=== PATIENT | male | born 1960 | race Caucasian/White ===

== ENCOUNTER → 2018-06-02 10:56 | Outpatient (CLI) | payer OTHER, SELFPAY ==
[2018-06-02 11:06] LABS: Absolute Lymphocyte Count 1.75 X10^3/ul (0.83-4.51); Absolute Neutrophil Count 4.4 X10^3/uL (2.0-7.7); Basophil# 0.05 X10^3/uL; Basophil% 0.7 % (0-1); Eosinophil# 0.19 X10^3/uL; Eosinophils% 2.7 % (0-5); Hematocrit 53.4 % (40-54); Hemoglobin 17.8 g/dl (13.0-16.5); Lymphocyte # 1.75 X10^3/ul (4.0); Lymphocyte % 24.6 % (19-41); Mean Corp Hgb Conc 33.3 g/gl (32-36); Mean Corpuscular Hgb 29.5 pg (27.0-32.0); Mean Corpuscular Volume 88.4 fL (80-94); Monocyte# 0.74 X10^3/uL; Monocyte% 10.4 % (0-10); Neutrophil # 4.36 X10^3/uL (2.7-7.7); Neutrophil % 61.3 % (47-70); POSITIVE COUNT NO; POSITIVE DIFFERENTIAL NO; POSITIVE MORPHOLOGY NO; Platelet Count 257 K/mm3 (150-450); RBC Distribution Width CV 13.5 % (11.6-14.6); RBC Distribution Width SD 43.3 fl (35.1-43.9); Red Blood Count 6.04 M/mm3 (4.6-6.2); White Blood Count 7.1 K/mm3 (4.4-11.0)
[2018-06-02 11:23] LABS: D-Dimer Quantitative (DVT/PE) 0.55 FEU/ug/m (0.27-0.49)
[2018-06-02 11:34] LABS: AST(SGOT) 24 U/L (15-37); Alanine Aminotransfer ALT/SGPT 56 U/L (16-61); Albumin, Serum 3.7 g/dL (3.2-5.0); Alkaline Phosphatase 106 U/L (45-117); Anion Gap 7 (5-15); BUN 10 mg/dL (7-18); BUN/Creat Ratio 10.8 RATIO (10-20); CPK Total, Creatine Kinase 66 U/L (39-308); CRP < 2.90 mg/L (0.0-3.0); Calcium,Total 8.7 mg/dL (8.5-10.1); Chloride 107 mmol/L (98-107); Creatinine, Serum 0.93 mg/dL (0.70-1.30); EST Glomerular Filtration Rate 90 mL/min (>60); Est Glom Filt Rate - Afr Amer 109 mL/min (>60); Globulin 3.8 g/dL (2.2-4.2); Glucose 87 mg/dL (74-106); Potassium 4.5 mmol/L (3.5-5.1); Protein, Total 7.5 g/dL (6.4-8.2); Sodium Level 142 mmol/L (136-145); Thyroid Stim Hormone (TSH) 1.04 uIU/mL (0.358-3.74)
== END ==
PROVIDERS: PCP Internal Medicine; Visit Provider Nurse Practitioner Gerontology
DX: R07.89 Other chest pain (principal)
CPT/HCPCS: 80053; 82550; 84443; 84484; 85025; 85379; 86140

== ENCOUNTER → 2018-06-02 12:19 | Outpatient (CLI) | payer OTHER, SELFPAY ==
--- NOTE | 2018-06-02 12:51 | CT_ITS ---
STUDY: CTA CHEST REASON FOR EXAM: Male, 57 years old. Elevated d-dimer. RADIATION DOSAGE (If Supplied By Facility): CTDIvol = ( 14.63 ) mGy, DLP = ( 635.07 ) mGycm TECHNIQUE: The examination was performed with the intravenous administration of 100 ml of Isovue 370 contrast material. Post-processing of the angiographic images was performed, with multiplanar reformation and 3D reconstruction. Individualized dose optimization techniques were used for this CT. COMPARISON: None. FINDINGS: Normal enhancement of the main pulmonary artery and right and left pulmonary arteries. Normal enhancement of the bilateral peripheral pulmonary arteries. There is no demonstrated pulmonary embolism. Normal thoracic aorta and visualized great vessels. There is no demonstrated aortic dissection. Normal heart and pericardium. Normal mediastinum. Normal hilar regions. Normal visualized trachea and bronchi. Mild elevation of the right hemidiaphragm. Increased linear markings with areas of confluence of both lung bases suggestive of a atelectasis. Early infiltrates cannot be excluded. Normal pleura. Normal chest wall structures. There are degenerative changes of thoracic spine. Normal visualized upper abdomen. CT/CTA Chest W/WO Contrast IMPRESSION: Normal CTA chest examination, without a demonstrated pulmonary embolism or arterial dissection. Increased markings at the lung bases suggestive of bibasilar atelectasis and/or possible early infiltrates. Follow-up is recommended. Electronically Signed: Matthew Sagastume MD at 13:47 EST Tel [phone], Service support ,
== END ==
PROVIDERS: Family Provider Internal Medicine; PCP Internal Medicine; Referring Provider Nurse Practitioner Gerontology; Visit Provider Nurse Practitioner Gerontology
DX: R79.1 Abnormal coagulation profile (principal)
CPT/HCPCS: 71275; Q9967

== ENCOUNTER 2018-06-08 12:22 | Emergency (ER) | payer OTHER, SELFPAY ==
[2018-06-08 12:24] VITALS: BP 120/71; PULSE 62; RESP 14; TEMP 36.4; O2SAT 93; BMI 27.2
--- NOTE | 2018-06-08 12:46 | EKG12_ITS ---
Test Reason : SYNCOPE Blood Pressure : / mmHG Vent. Rate : 066 BPM Atrial Rate : 066 BPM P-R Int : 146 ms QRS Dur : 084 ms QT Int : 382 ms P-R-T Axes : 051 087 035 degrees QTc Int : 400 ms Normal sinus rhythm Normal ECG Confirmed by JEREMIAH NEFF, JOE ([id number]), editor producer SIM HARPER ([id number]) on 06/10/2018 12:02:33 PM Referred By: MARGOT Confirmed By:JOE DANIELS MD
--- NOTE | 2018-06-08 12:46 | RAD_ITS ---
STUDY: X-RAY CHEST REASON FOR EXAM: Male, 57 years old. Chest pain. Syncopal episode. TECHNIQUE: Single AP portable view of the chest. COMPARISON: None. FINDINGS: EKG electrodes are seen. There is elevation of the right hemidiaphragm. The lungs are clear. There is no demonstrated pleural abnormality. Normal size heart. Normal mediastinum and al. Normal visualized pulmonary arteries. Normal visualized aortic arch and descending thoracic aorta. Normal visualized thoracic spine. Normal visualized ribs, clavicles, and shoulders. There is no demonstrated abnormality of the visualized soft tissue structures of the upper abdomen. RAD/Chest 1 View (Portable) IMPRESSION: Normal x-ray examination of the chest. Electronically Signed: Matthew Sagastume MD at 13:58 EST Tel [phone], Service support ,
--- NOTE | 2018-06-08 12:47 | CT_ITS ---
STUDY: CT BRAIN WITHOUT CONTRAST REASON FOR EXAM: Male, 57 years old. Seizure following a syncopal episode. RADIATION DOSAGE (If Supplied By Facility): CTDIvol = ( 44.99 ) mGy, DLP = ( 796.11 ) mGycm TECHNIQUE: Transaxial CT imaging of the brain was performed without administration of intravenous contrast material. Individualized dose optimization techniques were used for this CT. COMPARISON: None. FINDINGS: Normal soft tissue structures. Normal calvarium. Normal size ventricles and extra-axial spaces for the patient's age. Normal white matter tracts of the cerebral hemispheres. Normal basal ganglia and thalami. Normal brainstem. Normal cerebellum. There is no intracranial hemorrhage. There are no findings of an acute ischemic infarction. Minimal degree of mucosal thickening along the anterior aspect of the left ethmoid sinus. CT/Brain/Head without Contrast IMPRESSION: Normal unenhanced CT scan of the brain. Electronically Signed: Matthew Sagastume MD at 14:06 EST Tel [phone], Service support ,
--- NOTE | 2018-06-08 12:58 | ED.VISSUMM ---
- ER Visit Summary Date of Service: 06/08/18 Chief Complaint: [] Syncope after blood draw doctor's office History of Present Illness: The patient is a 57 M [] was in doctor's office to have routine follow-up blood test he had his blood drawn when he really became syncopal, the staff reports that they are concerned he may have had a seizure he woke immediately the patient indicates he remembers the entire episode he had no tongue biting no incontinence he had no sense of being ill in any way, he states it is not uncommon it is not uncommon for him to pass out if his blood is drawn, he indicates he had a chest pain workup recently showed negative CTA, he was scheduled for outpatient stress test. He has been doing fine he has not been sick in any way no fever no cough no chest pain no numbness weakness or paresthesias, and again he has no history of SC PE DVT seizures or syncope, he insists he feels fine and he actually would just prefer just to go home without any type of workup but explained to him that his physicians would like him to have screening labs EKG and head CT and he agrees to the above Physical Examination: [] 120/71 General, no distress resting comfortably HEENT is generally unremarkable The neck is supple no adenopathy Cardiovascular, regular rate and rhythm Lungs, clear bilateral Abdomen, soft nontender Extremities, no clubbing cyanosis or edema Neurologic, awake alert answering questions appropriately moving all 4 extremities, cranial nerves neurologic exam negative NIH 0 Test Results: [] Emergency Department Course and Treatment: [] This he has no complaints his EKG shows a sinus with nothing acute we will obtain screening labs and head CT his physicians ordered and will reevaluate him he states he feels fine and he wants to go home does not wish to be considered for admission under any circumstances Laboratory studies and other studies are generally unremarkable see those report, nothing acute, his head CT is also negative for all as is the chest x-ray he is remained completely asymptomatic, he states he feels fine he wants to go home I explained the exact etiology of the spell he had in the office is unclear he now recalls he has not had anything to eat since yesterday and he is wondering whether the fasting for the blood test could have contributed but again he feels fine wants to go home he will follow with his doctors for all of the other outpatient studies that have plan for him and will return for change in symptoms Treatment Plan: [] Disposition: [] Home stable Impression: [] Syncopal episode with blood draw resolved This note was generated with [employer] dictation software. It may contain incorrect words, spelling, and punctuation that were not noted in review of the chart prior to signing ED Disposition - Plan for ED Patient: Chief Complaint: Syncope Referrals: Patrizia Vizcarra DO [Primary Care Provider] -
--- NOTE | 2018-06-08 13:01 | ED.DCSUM_ITS ---
- ER Visit Summary Date of Service: 06/08/18 Chief Complaint: [] Syncope after blood draw doctor's office History of Present Illness: The patient is a 57 M [] was in doctor's office to have routine follow-up blood test he had his blood drawn when he really became syncopal, the staff reports that they are concerned he may have had a seizure he woke immediately the patient indicates he remembers the entire episode he had no tongue biting no incontinence he had no sense of being ill in any way, he states it is not uncommon it is not uncommon for him to pass out if his blood is drawn, he indicates he had a chest pain workup recently showed negative CTA, he was scheduled for outpatient stress test. He has been doing fine he has not been sick in any way no fever no cough no chest pain no numbness weakness or paresthesias, and again he has no history of [place] PE DVT seizures or syncope, he insists he feels fine and he actually would just prefer just to go home without any type of workup but explained to him that his physicians would like him to have screening labs EKG and head CT and he agrees to the above Physical Examination: [] 120/71 General, no distress resting comfortably HEENT is generally unremarkable The neck is supple no adenopathy Cardiovascular, regular rate and rhythm Lungs, clear bilateral Abdomen, soft nontender Extremities, no clubbing cyanosis or edema Neurologic, awake alert answering questions appropriately moving all 4 extremities, cranial nerves neurologic exam negative NIH 0 Test Results: [] Emergency Department Course and Treatment: [] This he has no complaints his EKG shows a sinus with nothing acute we will obtain screening labs and head CT his physicians ordered and will reevaluate him he states he feels fine and he wants to go home does not wish to be considered for admission under any circumstances Laboratory studies and other studies are generally unremarkable see those report, nothing acute, his head CT is also negative for all as is the chest x- ray he is remained completely asymptomatic, he states he feels fine he wants to go home I explained the exact etiology of the spell he had in the office is unclear he now recalls he has not had anything to eat since yesterday and he is wondering whether the fasting for the blood test could have contributed but again he feels fine wants to go home he will follow with his doctors for all of the other outpatient studies that have plan for him and will return for change in symptoms Treatment Plan: [] Disposition: [] Home stable Impression: [] Syncopal episode with blood draw resolved This note was generated with [employer] dictation software. It may contain incorrect words, spelling, and punctuation that were not noted in review of the chart darrius or to signing ED Disposition - Plan for ED Patient: Chief Complaint: Syncope Referrals: Patrizia Vizcarra DO [Primary Care Provider] -
[2018-06-08] MEDS: Aspirin 81 MG TAB.CHEW 324 MG PO (13:06)
[2018-06-08 13:07] VITALS: BP 119/67; PULSE 72; RESP 19; O2SAT 91
[2018-06-08] MEDS: 0.9% Normal Saline 1,000 ML 150 ML IV (13:07)
[2018-06-08 13:16] LABS: Absolute Lymphocyte Count 1.68 X10^3/ul (0.83-4.51); Absolute Neutrophil Count 5.9 X10^3/uL (2.0-7.7); Basophil# 0.05 X10^3/uL; Basophil% 0.6 % (0-1); Eosinophil# 0.13 X10^3/uL; Eosinophils% 1.6 % (0-5); Hematocrit 51.3 % (40-54); Hemoglobin 17.1 g/dl (13.0-16.5); Lymphocyte # 1.68 X10^3/ul (4.0); Mean Corp Hgb Conc 33.3 g/gl (32-36); Mean Corpuscular Hgb 29.4 pg (27.0-32.0); Mean Corpuscular Volume 88.1 fL (80-94); Mean Platelet Vol. 11.1 fl (6.2-12.0); Monocyte% 7.2 % (0-10); Neutrophil # 5.91 X10^3/uL (2.7-7.7); Neutrophil % 70.5 % (47-70); Platelet Count 236 K/mm3 (150-450); RBC Distribution Width CV 13.3 % (11.6-14.6); RBC Distribution Width SD 42.4 fl (35.1-43.9); Red Blood Count 5.82 M/mm3 (4.6-6.2); White Blood Count 8.4 K/mm3 (4.4-11.0)
[2018-06-08 13:22] LABS: POSITIVE COUNT NO; POSITIVE DIFFERENTIAL NO; POSITIVE MORPHOLOGY NO
[2018-06-08 13:23] LABS: BUN 19 mg/dL (7-18); Creatinine, Serum 1.17 mg/dL (0.70-1.30); EST Glomerular Filtration Rate 69 mL/min (>60); Estimated Creatinine Clearance 69.02 ml/min; Glucose 128 mg/dL (74-106)
[2018-06-08 13:24] LABS: Anion Gap 4 (5-15); BUN/Creat Ratio 16.2 RATIO (10-20); Calcium,Total 8.7 mg/dL (8.5-10.1); Chloride 106 mmol/L (98-107); Est Glom Filt Rate - Afr Amer 83 mL/min (>60); Potassium 4.2 mmol/L (3.5-5.1); Sodium Level 138 mmol/L (136-145)
--- NOTE | 2018-06-08 14:54 | ED.DEP ---
ED Disposition - Plan for ED Patient: Chief Complaint: Syncope Instructions: ED Syncope Vasovagal Referrals: Patrizia Vizcarra DO [Primary Care Provider] -
--- NOTE | 2018-06-08 14:55 | ED.DEP ---
ED Disposition - Plan for ED Patient: Chief Complaint: Syncope Instructions: ED Syncope Vasovagal Referrals: Patrizia Vizcarra DO [Primary Care Provider] -
[2018-06-08 16:14] VITALS: BP 118/84; PULSE 62; RESP 14; O2SAT 97
== END 2018-06-08 16:15 | disposition home or self-care (01) ==
LOC: ED 13:10
PROVIDERS: Emergency Provider Emergency Medicine; Family Provider Internal Medicine; PCP Internal Medicine
DX: R55 Syncope and collapse (principal)
CPT/HCPCS: 36415; 70450; 71045; 80048; 84484; 85025; 93005; 96360; 96361; 99284

== ENCOUNTER → 2018-09-16 15:41 | Outpatient (CLI) | payer OTHER, SELFPAY ==
--- NOTE | 2018-09-16 10:00 | COLBX_PTH ---
PATIENT: PARRISH WOODRUFF LOC: [facility] U#:[id number] AGE/SX: 64/M ROOM: RE09/16/[address]: Dr. Amrit Valencia MD : 1960 BED: DIS: SPEC #: [id number] RECD: 09/16/18 15:33 STATUS: CINTHYA REJacob #: [id number] KRUNAL: 09/16/18 10:[address]: Amrit Valencia DEPT: SURGICAL PATHOLOGY RECD BY: Johnny Rao ENTERED: 09/19/18 13:49 SP TYPE: COLON BX OTHR DR: Dr. Patriiza Vizcarra, [facility] Tissues: Sigmoid colon biopsy Procedures: Surgery Specimen Level IV HEADER OPERATION: Colonoscopy with polypectomy PRE-OP DIAGNOSIS: Screening TISSUE SUBMITTED: Distal sigmoid polyp MICROSCOPIC DIAGNOSIS Distal sigmoid colon polyp, biopsy: Tubular adenoma. AM:aruna 09/20/18 MICROSCOPIC DESCRIPTION Slides are reviewed. GROSS DESCRIPTION Received in fixative is one container labeled with the patient's name and designated distal sigmoid polyp. The specimen consists of a piece of anderson-pink polyp measuring 0.7 x 0.5 x 0.4 cm. A few fragments of fecal material are also noted. The specimen is totally submitted in one cassette. / SJ:aruna 09/19/18 TC:5 CPT: 61176
== END ==
PROVIDERS: Family Provider Internal Medicine; PCP Internal Medicine; Referring Provider Internal Medicine Gastroenterology; Visit Provider Internal Medicine Gastroenterology
DX: Z12.11 Encounter for screening for malignant neoplasm of colon (principal)
CPT/HCPCS: 88305

== ENCOUNTER 2020-03-21 09:11 | Emergency (ER) | payer OTHER, SELFPAY ==
[2020-03-21 09:13] VITALS: BP 136/81; PULSE 78; RESP 16; TEMP 36.1; O2SAT 99; BMI 25.0
--- NOTE | 2020-03-21 09:23 | RAD_ITS ---
STUDY: X-RAY CHEST REASON FOR EXAM: Male, 59 years old. RT SIDE CHEST PAIN X 1 DAY TECHNIQUE: Single AP portable view of the chest. COMPARISON: Comparison is made with prior study dated 06/08/2018. FINDINGS: EKG electrodes are seen. There is elevation of the right hemidiaphragm. The lungs are clear. There is no demonstrated pleural abnormality. Normal size heart. Normal mediastinum and al. Normal visualized pulmonary arteries. Normal visualized aortic arch and descending thoracic aorta. Normal visualized thoracic spine. Normal visualized ribs, clavicles, and shoulders. There is no demonstrated abnormality of the visualized soft tissue structures of the upper abdomen. RAD/Chest 1 View (Portable) IMPRESSION: Normal x-ray examination of the chest. Electronically Signed: Matthew Sagastume, at 10:07 EDT , Service support ,
--- NOTE | 2020-03-21 09:23 | EKG12_ITS ---
Test Reason : CP Blood Pressure : / mmHG Vent. Rate : 070 BPM Atrial Rate : 070 BPM P-R Int : 142 ms QRS Dur : 080 ms QT Int : 364 ms P-R-T Axes : 047 070 055 degrees QTc Int : 393 ms Normal sinus rhythm Normal ECG Confirmed by HARRIETT NEFF, GENARO ([id number]), slot editor ISRA SCHERER ([id number]) on 03/27/2020 10:26:58 AM Referred By: SALVATORE Confirmed By:GENARO LORENZANA MD
--- NOTE | 2020-03-21 09:24 | ED.VISSUMM ---
- ER Visit Summary Date of Service: 03/21/20 Chief Complaint: [Chest pain] History of Present Illness: The patient is a 59 M [presents the emergency department chest discomfort that started around 3 AM while at work. Patient denies any trauma to his chest. Patient states that he gets an intermittent pain that lasts anywhere from 10 to 15 seconds and feels like a burning and somewhere in between heartburn and a pulled muscle. There is no radiation of the pain. The pain is not exertional. There is no nausea or vomiting. There is no shortness of breath. He is not had pain like this before. He denies recent travel or surgery. No family history of heart disease. Patient does not have history of PE or DVT. Patient states that he took 2 full dose aspirin this morning. Otherwise has no medical history.] Physical Examination: [HEENT-PERRLA, EOMI. Cranial nerves II through XII grossly intact. TMs clear. Mucous membranes moist. No adenopathy. Cardiovascular-regular rate and rhythm without murmur or ectopy Lungs-clear to auscultation, chest wall stable without crepitus or subcu emphysema Abdomen-normoactive bowel sounds, soft, nontender, no rebound or rigidity, no peritoneal signs. Extremities-intact ?4, normal range of motion, normal pulses, atraumatic] Test Results: [EKG obtained on arrival shows sinus rhythm with a ventricular rate of 70 bpm with no acute segment changes. CBC with differential is normal. Chemistries unremarkable. Troponin less than 0.015. D-dimer was 0.38. Chest x-ray was normal.] Emergency Department Course and Treatment: [IV line was tablets on arrival. Patient placed on cardiac sonographer.] Treatment Plan: [Patient I feel is low risk for cardiac etiology of his chest pain. He has a heart score of 1 due to his age. He has had no more discomfort here in the department. Patient is wondering if it could be stress related as he oftentimes now finds himself clenching his jaw and feeling tense.] Patient advised to follow-up with his primary care physician within next 3 to 5 days and he actually does have an appointment in 5 days. Disposition: [Discharged home in stable condition. Patient advised to return if increasing pain, increasing shortness of breath, exertional dyspnea, or condition should worsen anyway.] Impression: [Chest [id number] uncertain] This note was generated with [employer] dictation software. It may contain incorrect words, spelling, and punctuation that were not noted in review of the chart prior to signing ED Disposition - Plan for ED Patient: Referrals: Zackery,Patrizia, DO [Primary Care Provider] -
[2020-03-21 09:40] LABS: Absolute Lymphocyte Count 2.28 X10^3/uL (0.83-4.51); Absolute Neutrophil Count 4.6 X10^3/uL (2.0-7.7); Basophil# 0.08 X10^3/uL; Eosinophil# 0.18 X10^3/uL; Eosinophils% 2.3 % (0-5); Hematocrit 49.6 % (40-54); Hemoglobin 16.5 g/dL (13.0-16.5); Lymphocyte # 2.28 X10^3/ul (4.0); Lymphocyte % 29.3 % (19-41); Mean Corp Hgb Conc 33.3 g/dL (32-36); Mean Corpuscular Hgb 29.2 pg (27.0-32.0); Mean Corpuscular Volume 87.8 fL (80-94); Mean Platelet Vol. 10.2 fl (6.2-12.0); Monocyte% 7.7 % (0-10); NRBC Flagged by Analyzer 0 % (0-5); Neutrophil # 4.63 X10^3/uL (2.7-7.7); Neutrophil % 59.4 % (47-70); Platelet Count 285 K/mm3 (150-450); RBC Distribution Width CV 12.6 % (11.6-14.6); RBC Distribution Width SD 40.3 fl (35.1-43.9); Red Blood Count 5.65 M/mm3 (4.6-6.2); White Blood Count 7.8 K/mm3 (4.4-11.0)
[2020-03-21 09:57] LABS: D-Dimer Quantitative (DVT/PE) 0.38 FEU/ug/m (0.27-0.49)
[2020-03-21 09:58] LABS: Anion Gap 5 (5-15); BUN 14 mg/dL (7-18); BUN/Creat Ratio 12.6 RATIO (10-20); Chloride 108 mmol/L (98-107); Creatinine, Serum 1.11 mg/dL (0.70-1.30); EST Glomerular Filtration Rate 72 mL/min (>60); Est Glom Filt Rate - Afr Amer 88 mL/min (>60); Estimated Creatinine Clearance 71.04 ml/min; Glucose 79 mg/dL (74-106); Sodium Level 143 mmol/L (136-145)
--- NOTE | 2020-03-21 10:58 | ED.DEP ---
ED Disposition - Plan for ED Patient: Instructions: ED Chest Pain Atypical Unkn Cause Referrals: Patrizia Vizcarra DO [Primary Care Provider] - 3-5 Days
[2020-03-21 11:15] VITALS: BP 130/86; PULSE 77; RESP 16; O2SAT 98
== END 2020-03-21 11:19 | disposition home or self-care (01) ==
PROVIDERS: Emergency Provider Emergency Medicine; PCP Internal Medicine
DX: R07.89 Other chest pain (principal)
CPT/HCPCS: 71045; 80048; 84484; 85025; 85379; 93005; 99284; A4216

== ENCOUNTER 2020-07-16 09:49 | Emergency (ER) | payer OTHER, SELFPAY ==
[2020-07-16 09:50] VITALS: BP 153/99; PULSE 77; RESP 16; TEMP 36.1; O2SAT 96; BMI 26.3
--- NOTE | 2020-07-16 10:08 | EKG12_ITS ---
Test Reason : REPEAT CP Blood Pressure : / mmHG Vent. Rate : 062 BPM Atrial Rate : 062 BPM P-R Int : 152 ms QRS Dur : 074 ms QT Int : 400 ms P-R-T Axes : 042 037 041 degrees QTc Int : 406 ms Normal sinus rhythm Normal ECG Confirmed by ELLI NEFF, HALLIE ([id number]), editor greeting card BERTA DIAZ ([id number]) on 07/22/2020 9:19:49 AM Referred By: QUETA Confirmed By:DEIDRA CALLOWAY MD
--- NOTE | 2020-07-16 10:10 | ED.DCSUM_ITS ---
History of Present Illness Chief Complaint: Chest Pain Informant: Patient Narrative: 60-year-old male with recent diagnosis of factor V Leiden presenting with left- sided chest pain which is intermittent. He does not get dizzy, short of breath, diaphoretic, nauseous when he gets this pain. He states that last for about a minute usually. It does not feel like pressure. Patient has no cardiac history. Patient has not had fever, chills, cough, shortness of breath, dizziness, lightheadedness. He states he feels otherwise well. He called his PCP who told him to come to the ER for evaluation. Past Medical History - Allergies and Home Meds Allergies/Adverse Reactions: Allergies Penicillins Allergy (Verified 07/16/20 09:53) Hives Primary Care Physician: Patrizia Vizcarra DO [Primary Care Provider] - Smoking Status: Never smoker Review of Systems General: Denies: Chills, Fever, Sweats Eyes: Denies: Visual changes - bilaterally, Diplopia ENT: Denies: Rhinorrhea, Sore throat Cardiovascular: Reports: Chest pain. Denies: Palpitations, Heart racing Respiratory: Denies: Dyspnea, Cough, Dyspnea on exertion Gastrointestinal: Denies: Abdominal pain, Nausea, Vomiting, Diarrhea, Melena, Hematochezia Genitourinary: Denies: Dysuria, Hematuria, Frequency Musculoskeletal: Denies: Back pain, Extremity Pain Skin: Denies: Rash, Wounds Neurological: Denies: Headache, Weakness, Numbness Physical Exam Vital Signs/Narrative: Vital Signs Temp Pulse Resp BP Pulse Ox 07/16/20 09:50 97 F L 77 16 153/99 H 96 Inital Vital Signs reviewed: Yes General: Well nourished, Well developed Head: Normocephalic, Atraumatic Eyes: Perrl, EOMI ENT: Moist mucous membranes, No rhinorrhea Cardiovascular: Regular rate, Regular rhythm, No murmurs Respiratory: No distress, CTA bilaterally Extremities: Nontender, No edema Skin: Normal color, No rash Neurological: Alert, Oriented x3, Cranial nerves II-XII grossly intact Psychological: Normal affect, Normal Mood Diagnostic/Tx/Re-eval - Rhythm Strip Rhythm Strip: Sinus Rhythm Rate: 61 - EKG Initial EKG Interpretation: Sinus Rhythm, No Acute Injury Pattern, - - MN interval 150 ms QRS duration 76 ms QTc 394 ms Follow-up EKG Interpretation: Sinus Rhythm, No Acute Injury Pattern - Medical Decision Making Patient presents with intermittent chest pain. He does not have associated symptoms. His initial EKG is sinus rhythm at 61 bpm without ischemic changes interpreted by myself. His chest x-ray is interpreted by myself and radiologist as negative for acute process. Lab work is normal. Troponin is negative. Patient has concern for PE given that he was just diagnosed with factor V Leiden. Patient will have CTA of the chest and delta troponin/EKG. CTA of the chest is negative for acute process. Delta troponin is negative. Repeat EKG as interpreted by myself shows no changes from initial EKG and no signs of ischemia. Patient counseled on findings. Recommended he follows up with his PCP on an outpatient basis. She is given return precautions. Impression: 1. Chest pain ED Disposition - Plan for ED Patient: Disposition: Home or Assisted Living Instructions: ED Chest Pain, Uncertain Cause Referrals: Patrizia Vizcarra, [Primary Care Provider] -
[2020-07-16 10:19] LABS: Absolute Lymphocyte Count 2.28 X10^3/uL (0.83-4.51); Absolute Neutrophil Count 5.2 X10^3/uL (2.0-7.7); Basophil# 0.09 X10^3/uL; Basophil% 1.1 % (0-1); Eosinophil# 0.29 X10^3/uL; Eosinophils% 3.4 % (0-5); Hematocrit 53.9 % (40-54); Hemoglobin 17.6 g/dL (13.0-16.5); Lymphocyte # 2.28 X10^3/ul (4.0); Lymphocyte % 26.8 % (19-41); Mean Corp Hgb Conc 32.7 g/dL (32-36); Mean Corpuscular Hgb 28.9 pg (27.0-32.0); Mean Corpuscular Volume 88.4 fL (80-94); Mean Platelet Vol. 10.3 fl (6.2-12.0); NRBC Flagged by Analyzer 0 % (0-5); Neutrophil # 5.24 X10^3/uL (2.7-7.7); Neutrophil % 61.5 % (47-70); Platelet Count 290 K/mm3 (150-450); RBC Distribution Width SD 41.8 fl (35.1-43.9); White Blood Count 8.5 K/mm3 (4.4-11.0)
[2020-07-16 10:20] VITALS: O2SAT 96
[2020-07-16] MEDS: Aspirin 81 MG TAB.CHEW 324 MG PO (10:21)
[2020-07-16 10:27] LABS: D-Dimer Quantitative (DVT/PE) 0.43 FEU/ug/m (0.27-0.49)
[2020-07-16 10:32] LABS: Anion Gap 4 (5-15); BUN 16 mg/dL (7-18); BUN/Creat Ratio 13.9 RATIO (10-20); Calcium,Total 8.9 mg/dL (8.5-10.1); Chloride 107 mmol/L (98-107); Creatinine, Serum 1.15 mg/dL (0.70-1.30); EST Glomerular Filtration Rate 69 mL/min (>60); Est Glom Filt Rate - Afr Amer 84 mL/min (>60); Estimated Creatinine Clearance 67.74 ml/min; Glucose 99 mg/dL (74-106); Potassium 4.3 mmol/L (3.5-5.1); Sodium Level 138 mmol/L (136-145)
--- NOTE | 2020-07-16 10:40 | RAD_ITS ---
STUDY: X-RAY CHEST REASON FOR EXAM: Male, 60 years old. INTERMITTENT LEFT CHEST PAIN, N/V, LEFT ARM RADIATION. TECHNIQUE: Single AP portable view of the chest. COMPARISON: None. FINDINGS: The lungs are clear and expanded. There is no demonstrated pleural abnormality. Normal size heart. Normal mediastinum and al. Normal visualized pulmonary arteries. Normal visualized aortic arch and descending thoracic aorta. There is a 12 degree dextroscoliosis of the thoracic spine. There is degenerative osteoarthritis of the bilateral shoulders. There is no demonstrated abnormality of the visualized soft tissue structures of the upper abdomen. RAD/Chest 1 View (Portable) IMPRESSION: Degenerative changes, as described above. No demonstrated acute cardiopulmonary process. Electronically Signed: Rica Remy, at 11:19 EST Tel , Service support ,
--- NOTE | 2020-07-16 11:20 | CT_ITS ---
STUDY: CTA CHEST REASON FOR EXAM: Male, 60 years old. INTERMITTENT CHEST PAIN SINCE 12.25 RADIATES TO LT ARM RADIATION DOSAGE (If Supplied By Facility): CTDIvol = ( 11.53 ) mGy, DLP = ( 362.84 ) mGycm TECHNIQUE: The examination was performed with the intravenous administration of IV 100mL Isovue-370. Post-processing of the angiographic images was performed, with multiplanar reformation and 3D reconstruction. Individualized dose optimization techniques were used for this CT. COMPARISON: None. FINDINGS: Normal enhancement of the main pulmonary artery and right and left pulmonary arteries. Normal enhancement of the bilateral peripheral pulmonary arteries. There is no demonstrated pulmonary embolism. Normal thoracic aorta and visualized great vessels. There is no demonstrated aortic dissection. Normal heart and pericardium. Normal mediastinum. Normal hilar regions. Normal visualized trachea and bronchi. Subsegmental atelectases are noted in the right and left lung bases. Normal pulmonary parenchyma. Normal pleura. Normal chest wall structures. Normal osseous structures. Normal visualized upper abdomen. CT/CTA Chest W/WO Contrast IMPRESSION: No demonstrated pulmonary embolism or arterial dissection. Electronically Signed: Rica Remy, at 12:20 EST Tel , Service support ,
--- NOTE | 2020-07-16 13:00 | EKG12_ITS ---
Test Reason : CP Blood Pressure : / mmHG Vent. Rate : 061 BPM Atrial Rate : 061 BPM P-R Int : 150 ms QRS Dur : 076 ms QT Int : 392 ms P-R-T Axes : 046 059 049 degrees QTc Int : 394 ms Normal sinus rhythm Normal ECG Confirmed by ELLI NEFF, HALLIE ([id number]), newspaper photo editor BERTA DIAZ ([id number]) on 07/22/2020 9:20:03 AM Referred By: QUETA Confirmed By:DEIDRA CALLOWAY MD
[2020-07-16 13:02] VITALS: BP 123/80; PULSE 74; RESP 16; O2SAT 98
[2020-07-16 14:28] VITALS: BP 127/82; PULSE 72; RESP 17; O2SAT 96
== END 2020-07-16 14:29 | disposition home or self-care (01) ==
PROVIDERS: Emergency Provider Student in an Organized Health Care Education/Training Program; PCP Internal Medicine
DX: R07.9 Chest pain, unspecified (principal)
CPT/HCPCS: 71045; 71275; 80048; 84484; 85025; 85379; 93005; 99285; Q9967; A4216

== ENCOUNTER 2020-07-23 13:46 | Outpatient (RCR) | payer OTHER, SELFPAY ==
--- NOTE | 2020-07-23 14:58 | HP.PTEVAL_ITS ---
Patient's Visit Information PARRISH WOODRUFF is a 60 year old M referred to Physical Therapy by SUYAPA Bolanos with a diagnosis of L shoulder strain.. Date of Evaluation: 07/23/20 Physical Therapist: Dave Basilio, PT, ATC - Visit Plan Frequency: 1x/Week Duration: 2 Weeks Plan: Pt was issued a HEP of pec stretches today to be performed 3 times a day. Pt will continue with the stretches and follow up or discontinue in 4 weeks. - Subjective Pt reports L shoulder has been sore for a couple weeks. Pt reports the pain had an insidious onset in nature. Pt reports the pain is located mostly on the anterior region of his L chest along the distribution of the supraspinatus. Pt his R hand dominant. No sleep difficulty with the use of Naproxen. No tingling or numbness in L UE. 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 Pt reports his pain is very minimal today and he believes he may just need this appointment to show his some stretches to help. 0/10 pain at rest, 1/10 at worst - Pain L anterior chest region Pain Intensity (Out of 10): 0 Pain Intensity Range: 1 - Objective Palpation: Pt is very tender directly along the distribution of the L pec major. No obvious deformity present at this time. Neuro: B UE sensation is WNL to light touch. B bicepital reflex= 1/3. MMT: L UE is grossly 5/5 throughout. ROM: L shoulder is equal to the R shoulder in all ranges - Goals Goal 1:: I with HEP after eval Goal Time Frame: 1 Week - Rehabilitation Potential Physical Therapy Diagnosis: Pt had L ant chest pain secondary to L pec muscle strain. Rehabilitation Potential: Good - Anticipated Interventions Patient/Client Instruction: Educate patient on: Condition, Plan of Care For the Purpose of:: To improve self management Therapeutic Exercise to Include: Passive ROM, Active ROM For the Purpose of:: To decrease pain, To improve muscle performance and motor function Cryotherapy (ice pack, ice massage): Yes For the Purpose of:: To decrease pain Thank you for the opportunity to evaluate your patient. For Medicare and Medicare HMO plans, please review the plan of care and approve it. It will need to be FAXED BACK to us at [phone] for Medicare purposes. For Medicare only, by signing this I certify the plan of care. Please let me know if there are questions or concerns regarding this plan of care. Physician Signature: Date:
--- NOTE | 2020-10-09 09:15 | HP.PT.NRP ---
PARRISH WOODRUFF was seen in my office for initial evaluation on 07/23/20. The following Plan of Care was established for this patient: Initial Frequency: 1x/Week Initial Duration: 2 Weeks Patient/Client Instruction: Educate patient on: Condition, Plan of Care For the Purpose of:: To improve self management Therapeutic Exercise to Include: Passive ROM, Active ROM For the Purpose of:: To decrease pain, To improve muscle performance and motor function Cryotherapy (ice pack, ice massage): Yes For the Purpose of:: To decrease pain This patient was last seen in our office . Pertinent comments regarding their Physical therapy will appear below: Pt was evaluated on July 23, 2020 for L shoulder pain. Pt has not returned through todays date, and is discontinued at this time. At this point I will be discontinuing this patient from physical therapy. I would be happy to see this patient again in the future if found appropriate by the physician. Thank you! Dave Basilio, PT, ATC
== END 2020-07-23 19:00 | disposition home or self-care (01) ==
LOC: PT 13:46
PROVIDERS: PCP Internal Medicine; Referring Provider Nurse Practitioner; Visit Provider Nurse Practitioner
DX: S46.912D Strain of unspecified muscle, fascia and tendon at shoulder and upper arm level, left arm, subsequent encounter (principal)
CPT/HCPCS: 97161

== ENCOUNTER 2021-09-08 13:09 | Outpatient (CLI) | payer OTHER, SELFPAY ==
[2021-09-08 13:26] LABS: Absolute Lymphocyte Count 2.24 X10^3/uL (0.83-4.51); Absolute Neutrophil Count 5.5 X10^3/uL (2.0-7.7); Basophil# 0.08 X10^3/uL; Basophil% 0.9 % (0-1); Eosinophil# 0.16 X10^3/uL; Eosinophils% 1.8 % (0-5); Hematocrit 49.7 % (40-54); Hemoglobin 16.7 g/dL (13.0-16.5); Lymphocyte # 2.24 X10^3/ul (0.83-4.51); Lymphocyte % 25.5 % (19-41); Mean Corp Hgb Conc 33.6 g/dL (32-36); Mean Corpuscular Hgb 28.8 pg (27.0-32.0); Mean Corpuscular Volume 85.7 fL (80-94); Mean Platelet Vol. 10.5 fl (6.2-12.0); Monocyte# 0.79 X10^3/uL; NRBC Flagged by Analyzer 0 % (0-5); Neutrophil # 5.49 X10^3/uL (2.7-7.7); Neutrophil % 62.5 % (47-70); Platelet Count 329 K/mm3 (150-450); RBC Distribution Width CV 12.8 % (11.6-14.6); RBC Distribution Width SD 39.6 fl (35.1-43.9); White Blood Count 8.8 K/mm3 (4.4-11.0)
[2021-09-08 13:50] LABS: AST(SGOT) 20 U/L (15-37); Alanine Aminotransfer ALT/SGPT 42 U/L (16-61); Albumin, Serum 3.6 g/dL (3.2-5.0); Alkaline Phosphatase 103 U/L (45-117); Anion Gap 5 (5-15); BUN 10 mg/dL (7-18); Calcium,Total 9.5 mg/dL (8.5-10.1); Chloride 106 mmol/L (98-107); EST Glomerular Filtration Rate 82 mL/min (>60); Est Glom Filt Rate - Afr Amer 99 mL/min (>60); Globulin 3.5 g/dL (2.2-4.2); Glucose 87 mg/dL (74-106); Potassium 4.2 mmol/L (3.5-5.1); Protein, Total 7.1 g/dL (6.4-8.2); Sodium Level 141 mmol/L (136-145); Thyroid Stim Hormone (TSH) 0.73 uIU/mL (0.358-3.74)
== END 2021-09-08 23:59 | disposition home or self-care (01) ==
LOC: LABSPEC 13:10
PROVIDERS: PCP Internal Medicine; Referring Provider Nurse Practitioner; Visit Provider Nurse Practitioner
DX: R42 Dizziness and giddiness (principal)
CPT/HCPCS: 80053; 84443; 85025; 85379

== ENCOUNTER 2021-09-15 08:36 | Outpatient (CLI) | payer OTHER, SELFPAY | END 2021-09-15 23:59 | disposition home or self-care (01) | LOC: PSN 08:38 | PROVIDERS: PCP Internal Medicine; Referring Provider Nurse Practitioner; Visit Provider Nurse Practitioner | DX: R42 Dizziness and giddiness (principal) | CPT/HCPCS: 93225; 93226 ==

== ENCOUNTER → 2025-01-16 | Outpatient (CLI) | payer OTHER, SELFPAY ==
--- NOTE | 2025-01-16 16:29 | RAD_ITS ---
PROCEDURE: CHEST PA AND LATERAL 01/16/2025 REASON FOR EXAM: COUGH TECHNIQUE: CHEST PA AND LATERAL COMPARISON: 07/16/2020 FINDINGS: No focal consolidation. No pleural effusion or pneumothorax. Cardiac silhouette is within normal limits. No focal consolidations. RAD/Chest PA and Lateral IMPRESSION: No focal consolidations. Reading Location: [id number]
== END | disposition home or self-care (01) ==
LOC: MTRAD 16:27
PROVIDERS: PCP Internal Medicine; Referring Provider Internal Medicine; Visit Provider Internal Medicine
DX: R05.9 Cough, unspecified (principal)
CPT/HCPCS: 71046